=== PATIENT | male | born 1965 | race Caucasian/White ===

== ENCOUNTER 2016-11-15 19:07 | Emergency (ER) | payer BC ==
[~2016-11-15] VITALS: Ht 182.9 cm; Wt 77.1 kg
[2016-11-15 19:25] VITALS: BP 154/85
[2016-11-15 19:56] LABS: Basophils # (auto) 0 uL; Basophils % (auto) 0.1 % (0.0-2.0); CONDITION Y; Eosinophils # (auto) 0 uL; Hematocrit 46.1 % (41.0-53.0); Hemoglobin 15.6 g/dL (13.5-17.5); Lymphocytes # (auto) 0.9 uL; Mean Corpuscular Hemoglobin 31.3 pg (28.0-32.0); Mean Corpuscular Hgb Conc. 33.9 g/dL (32.0-36.0); Mean Corpuscular Volume 92.3 fL (80.0-100.0); Mean Platelet Volume 8.9 fL (7.4-10.4); Monocytes # (auto) 0.5 uL; Monocytes % (auto) 3.1 % (0.0-12.0); Neutrophils # (auto) 16.3 uL; Neutrophils % (auto) 91.8 % (37.0-80.0); Platelet Count (auto) 341 10^3/uL (140-450); Red Cell Distribution Width 13.3 % (11.6-16.0); White Blood Cell 17.8 10^3/uL (4.4-10.8)
[2016-11-15] MEDS ORDERED: SODIUM CHLORIDE 0.9% 1,000 ML IVB ONE (20:06)
[2016-11-15] MEDS ORDERED: ONDANSETRON HCL 4 MG/2 ML VIAL IV ONE (20:15)
[2016-11-15 20:17] LABS: Albumin 4.5 g/dL (3.4-5.0); Anion Gap 12 (5-15); Aspartate Aminotransferase 16 U/L (15-37); BUN/Creatinine Ratio 12.5; Blood Urea Nitrogen 13 mg/dL (7-18); Calcium 9.3 mg/dL (8.5-10.1); Carbon Dioxide 23 mmol/L (21-32); Chloride 105 mmol/L (98-107); GFR African American 97 mL/min; GFR Non-African American 80 mL/min; Glucose 127 mg/dL (74-106); Magnesium 2.1 mg/dL (1.6-2.6); Potassium 4.5 mmol/L (3.5-5.1); Sodium 140 mmol/L (136-145)
[2016-11-15 20:22] LABS: Alkaline Phosphatase 89 U/L (45-117); Bilirubin, Total 0.9 mg/dL (0.2-1.0); Total Protein 8.2 g/dL (6.4-8.2)
[2016-11-15] MEDS ORDERED: SODIUM CHLORIDE 0.9% 1,000 ML IV ONE ×2 (20:30→22:15)
[2016-11-15] MEDS ORDERED: TETANUS-DIPTH-ACEL PERTUSSIS 0.5ML SYRG IM ONE (20:30)
[2016-11-15] MEDS ORDERED: IOHEXOL 300 MG/ML 100ML BOTTLE IJ ONE (20:39)
[2016-11-15 21:07] LABS: Lactic Acid w/Reflex 2.5 mmol/L (0.4-2.0)
[2016-11-15 21:29] LABS: REFLEX LACTIC ACID YES OR NO YES
[2016-11-15] MEDS ORDERED: MILK OF MAGNESIA 30ML SUSP PO ONE (22:15)
[2016-11-15] MEDS ORDERED: POLYETHYLENE GLYCOL 17GM PWDR PO ONE (22:15)
[2016-11-15] MEDS ORDERED: METOCLOPRAMIDE HCL 5MG/ml INJ 2ml VIAL IV ONE (22:15)
[2016-11-15 22:53] LABS: Urine Bilirubin Negative (Negative); Urine Blood Negative /uL (Negative); Urine Color Yellow (Yellow); Urine Glucose Normal (Normal); Urine Mucus FEW (None Seen); Urine Nitrite Negative (Negative); Urine RBC 1 /hpf (0 - 3); Urine Squamous Epithelial Cell FEW /hpf (<5); Urine Urobilinogen Normal (Negative); Urine pH 6.5 (5.0-8.0)
[2016-11-15 23:14] LABS: Urine Ketone 2+ (Negative)
== END 2016-11-16 01:10 | disposition home or self-care (01) ==
LOC: ER 19:18
DX: K59.01 Slow transit constipation (principal); R56.9 Unspecified convulsions; F17.210 Nicotine dependence, cigarettes, uncomplicated; F12.10 Cannabis abuse, uncomplicated; R31.9 Hematuria, unspecified; Z90.49 Acquired absence of other specified parts of digestive tract; R11.2 Nausea with vomiting, unspecified
CPT/HCPCS: 36415; 70450; 71010; 74177; 80053; 80307; 80320; 81001; 82962; 83605; 83690; 83735; 84484; 85025; 87040; 90471; 90715; 96361; 96374; 99285; J2765; J7030; Q9967

== ENCOUNTER 2019-11-01 18:21 | Inpatient (IN) | payer BC, OTHER ==
[~2019-11-01] VITALS: Ht 172.7 cm; Wt 79.7 kg
[2019-11-01] VITALS (8 sets, daily range): BP systolic 114–132; BP diastolic 87–103
[2019-11-01] MEDS ORDERED: HEPARIN SODIUM (PORCINE) 5000 UNITS/ML 1ML VIAL IV ONE (18:30)
[2019-11-01] MEDS ORDERED: LIDOCAINE HCL 100 MG/5ML (2%) SYRG INJ IV ONE (18:30)
[2019-11-01] MEDS ORDERED: MIDAZOLAM HCL 1MG/1ML-2 ML VIAL ONE ×2 (18:39→18:56)
[2019-11-01] MEDS ORDERED: SUCCINYLCHOLINE CHLORIDE 20 MG/ML 10ML VIAL IV ONE ×2 (18:43→19:00)
[2019-11-01] MEDS ORDERED: MIDAZOLAM DRIP 50 mg/50mL 50 ML IV ONE (18:43)
[2019-11-01] MEDS ORDERED: ETOMIDATE (2MG/ML) 20ML VIAL IV ONE ×2 (18:43→19:00)
[2019-11-01] MEDS ORDERED: MIDAZOLAM DRIP 100 mg/100mL NS 100 ML IV ONE (18:45)
[2019-11-01] MEDS ORDERED: ANGIOMAX 250 MG VIAL IV ONE (18:55)
[2019-11-01] MEDS ORDERED: HEPARIN SODIUM (PORCINE) 5000 UNITS/ML 1ML VIAL ONE (18:56)
[2019-11-01] MEDS ORDERED: fentaNYL CITRATE 100 MCG/2 ML VL ONE (18:56)
[2019-11-01] MEDS ORDERED: SODIUM CHL 0.9% 50 ML ONE (18:56)
[2019-11-01] MEDS ORDERED: IOHEXOL 350 MG/ML 100ML IJ ONE (18:57)
[2019-11-01] MEDS ORDERED: VERAPAMIL 2.5MG/ML INJ 2ML VIAL IV ONE (18:57)
[2019-11-01] MEDS ORDERED: IODIXANOL 320MG/ML 100ML BTL IV ONE ×2 (18:58→20:01)
[2019-11-01] MEDS ORDERED: SODIUM CHLORIDE 0.9% 1,000 ML IV ONE (19:00)
[2019-11-01] MEDS ORDERED: AMIODARONE HCL 300 MG in D5W 5% 100 ML IV ONE (19:00)
--- NOTE | 2019-11-01 19:05 | NUR ---
PT WAS INTUBATED IN ER. PT CODE STEMI BROUGHT OVER FROM ER AT THIS TIME AND PLACED ON ALLERGIST VENT V 22 SETTINGS AC 16 VT 500 +5 100. PT HAS ETT 8.0 SECURED WITH SIRIA AT 24CM. PT IS TOLERATING WELL AT THIS TIME. PT IS ON VERSED AND DIPRIVAN FOR SEDATION. WILL REMAIN WITH PT FOR PROCEDURE.
[2019-11-01 19:32] LABS: Basophils # (auto) 0.1 10 ^3/uL (0-0.2); Basophils % (auto) 0.4 % (0.0-2.0); Eosinophils # (auto) 0 10 ^3/uL (0-0.8); Hematocrit 49.3 % (41.0-53.0); Hemoglobin 16.1 g/dL (13.5-17.5); Lymphocytes # (auto) 1.6 10 ^3/uL (0.4-5.4); Lymphocytes % (auto) 7.6 % (10.0-50.0); Mean Corpuscular Hemoglobin 31.3 pg (28.0-32.0); Mean Corpuscular Hgb Conc. 32.7 g/dL (32.0-36.0); Mean Corpuscular Volume 95.9 fL (80.0-100.0); Monocytes # (auto) 0.9 10 ^3/uL (0-1.3); Monocytes % (auto) 4.5 % (0.0-12.0); Neutrophils # (auto) 18.4 10 ^3/uL (1.6-8.6); Neutrophils % (auto) 87.5 % (37.0-80.0); Platelet Count (auto) 305 10^3/uL (140-450); Red Blood Cells 5.14 10^6/uL (4.5-5.90); Red Cell Distribution Width 13.9 % (11.8-14.3)
[2019-11-01] MEDS ORDERED: PROPOFOL 100 ML IV ONE (19:38)
[2019-11-01] MEDS ORDERED: EPTIFIBATIDE INJ (2MG/ML) 10ML VIAL IV ONE (19:51)
[2019-11-01] MEDS ORDERED: TICAGRELOR 90 MG TAB ONE (20:09)
[2019-11-01] MEDS ORDERED: EPTIFIBATIDE DRIP(0.75MG/ML) 100 ML IV ONE (20:10)
[2019-11-01] MEDS ORDERED: FUROSEMIDE 40 MG/4 ML VIAL IV ONE (20:30)
[2019-11-01] MEDS ORDERED: EPTIFIBATIDE DRIP(0.75MG/ML) 100 ML IV SCH (20:30)
[2019-11-01] MEDS ORDERED: OPTISON 3ml Vial for INJ IV ONE (20:46)
--- NOTE | 2019-11-01 21:00 | NUR ---
ETT ADVANCED TO 26CM PER XRAY FINDINGS OF 5.5 CM ABOVE SEVERO, AND SECURED WITH SIRIA.
--- NOTE | 2019-11-01 21:15 | NUR ---
MD MARQUES ON UNIT. GAVE THIS RN UPDATE ON PT CONDITION AND TOLD TO TURN OFF INTEGRILIN GTT IF PT IS EXPERIENCING S/S OF BLEEDING BUT PREFERS TO KEEP GTT RUNNING UNTIL 0300 ON 11/01.
--- NOTE | 2019-11-01 21:30 | NUR ---
RECEIVED PT FROM RETINAL ANGIOGRAPHER. APPLIED PT TO ICU MONITOR. VITAL SIGNS FOLLOWS: 97.4 TEMP/ HR 100/ RESP 22/ SP02 100%/ BP 114/87 LEFT UPPER EXTREMITY/WEIGHT 70.7 KG. PT IS MECHANICALLY VENTILATED WITH MODE OF AC, RATE 16, TV 500, PEEP OF 5. VITAL SIGNS STABLE. EKG IS SINUS TACH WITH ST ELEVATION POST CATH. LUNGS ARE CLEAR TO AUSCULTATION. OG TUBE IN PLACE VIA POSITIVE AUSCULTATION AT 55 CM AT THE LIP. RESIDUAL BLOOD COMING FROM NOSE AND MOUTH. WHEN SUCTIONED VIA ETT THERE IS MINIMAL MIKAL BLOOD NOTED. GTTS RUNNING ARE DIPRVAN 15, VERSED 15, AND INTEGRILLIN 2MCG, NS TKO. RIGHT GROIN CATH SITE IS ASYMPTOMATIC WITH NO S/S OF BLEEDING OR HEMATOMA. SENT MRSA SWAB. WILL CONTINUE TO MONITOR AND ASSESS PT.
--- NOTE | 2019-11-01 21:30 | NUR ---
DONOR RELATIONS COORDINATOR; Patient taken to ICU room 110, placed on monitoring engineer, right groin soft, no hematoma or bleeding noted, Safeguard in place, care endorsed to Sheila AUXILIARY EQUIPMENT TENDER.
--- NOTE | 2019-11-01 22:15 | NUR ---
MD Dillon ROBLERO AT BEDSIDE. SAW PT, NO NEW ORDERS RECEIVED. UPDATED MD ON PT CONDITION, HISTORY, AND MEDICATIONS GIVEN. SAYS WILL BE THE PTS PRIMARY CARE HERE IN THE HOSPITAL AND WILL SEE PT IN AM.
--- NOTE | 2019-11-01 22:36 | NUR ---
PTS SIGNIFICANT OTHER AT BEDSIDE. UPDATED HER ON PT CONDITION AND PLAN OF CARE. VERIFIED PT PCP- DR. LOWE, PT HISTORY, HOME MEDICATIONS, VACCINATIONS WITH HER. ALL QUESTIONS AND CONCERNS ADDRESSED AT THIS TIME.
--- NOTE | 2019-11-01 22:50 | NUR ---
MD MATHIAS CALL NEPHROLOGY WAS CONSULTED FOR THIS PT. MD MATHIAS CALLED UNIT TO GET AN UPDATE ON PT. UPDATED MD ON PT CONDITION AND CURRENT PLAN OF CARE. LABS HAVE NOT RESULTED YET. SAYS TO CALL LAB AND GET VALUES THEN CALL HIM BACK. WILL EXECUTE.
--- NOTE | 2019-11-01 22:53 | NUR ---
CALLED LAB TO VERIFY STATUS OF PTS LABS. LAB STATES SAMPLE WAS HEMOLYZED. THIS RN WILL RESEND CMP.
--- NOTE | 2019-11-01 23:03 | NUR ---
STAT CMP WALKED TO LAB BY ELENA MARRUFO. AWAITING RESULTS
[2019-11-01] MEDS: PROPOFOL 100 ML IV SCH (23:45)
[2019-11-01 23:51] LABS: Calcium 8.6 mg/dL (8.5-10.1); Potassium 5.3 mmol/L (3.5-5.1)
[2019-11-01 23:53] LABS: BUN/Creatinine Ratio 17.1
[2019-11-02] VITALS (103 sets, daily range): BP systolic 89–120; BP diastolic 56–91
--- NOTE | 2019-11-02 00:01 | NUR ---
JOSE MATHIAS WITH PTS LAB RESULTS. MADE HIM AWARE OF PTS 5.3 POTASSIUM LEVEL AND ELEVATED LIVER ENZYMES. NEW ORDERS RECEIVED FOR 2MG BUMEX IV PUSH X1.
[2019-11-02 00:02] LABS: Bilirubin, Total 0.8 mg/dL (0.2-1.0)
[2019-11-02] MEDS ORDERED: BUMETANIDE 2.5mg/10ml (0.25 mg/ml) INJ IV ONE ×2 (00:15→15:30)
[2019-11-02 00:47] LABS: Partial Thromboplastin Time 30.2 sec (23.64-32.05)
[2019-11-02] MEDS ORDERED: PROPOFOL 100 ML IV ONE (00:48)
[2019-11-02] MEDS ORDERED: MIDAZOLAM DRIP 50 mg/50mL 50 ML IV ONE (00:48)
[2019-11-02] MEDS: ATORVASTATIN 20 MG TAB PO SCH ×2 (00:56→21:54)
[2019-11-02] MEDS: PANTOPRAZOLE 40 MG/10 ML VIAL INJ IV SCH ×3 (00:56→21:54)
--- NOTE | 2019-11-02 02:56 | NUR ---
INTEGRILIN GTT TURNED OFF PER MD MARQUES ORDER. PT HAS NO S/S OF BLEEDING AT THIS TIME. WILL CONTINUE TO MONITOR AND ASSESS.
--- NOTE | 2019-11-02 04:30 | NUR ---
PT CARE GAVE PT BED BATH. SKIN ASSESSED WITH NO NEW CHANGES. GOWN CHANGE AND PARTIAL STEPHENIE CHANGE DONE. ORAL CARE DONE AND PT TURNED.
--- NOTE | 2019-11-02 04:43 | NUR ---
FAMILY CALL SPOKE WITH PTS SIGNIFICANT OTHER AND GAVE UPDATE ON PT CONDITION. PASSWORD VERIFIED. ALL QUESTIONS AND CONCERNS ADDRESSED AT THIS TIME.
[2019-11-02] MEDS: PROPOFOL 100 ML IV SCH ×4 (06:01→22:01)
[2019-11-02] MEDS: TICAGRELOR 90 MG TAB GT SCH ×3 (07:31→21:54)
--- NOTE | 2019-11-02 07:37 | NUR ---
REPORT GIVEN TO LES PARKER.
--- NOTE | 2019-11-02 08:14 | NUR ---
Resumed care at 0720, orders reviewed and ongoing assessments being done. S/P CPR and S/P LHC with PTCA. Remains intubated and sedated. Upon tactile stimulation does withdraw to touch. Remains on sedation and not able to open eyes at this time. Will initiate sedation vacation. LHC puncture site to right groin, dressing dry and intact and no hematoma noted. Good palpable pulses to both lower extremities. Noted some blood tinged oral secretion but no other bleeding noted.
[2019-11-02 09:01] LABS: Basophils # (auto) 0.1 10 ^3/uL (0-0.2); Basophils % (auto) 0.3 % (0.0-2.0); Eosinophils # (auto) 0 10 ^3/uL (0-0.8); Hematocrit 50.9 % (41.0-53.0); Hemoglobin 16.8 g/dL (13.5-17.5); Lymphocytes # (auto) 1.7 10 ^3/uL (0.4-5.4); Lymphocytes % (auto) 7.5 % (10.0-50.0); Mean Corpuscular Hemoglobin 31.1 pg (28.0-32.0); Monocytes # (auto) 2.3 10 ^3/uL (0-1.3); Monocytes % (auto) 10.5 % (0.0-12.0); Neutrophils # (auto) 18.2 10 ^3/uL (1.6-8.6); Neutrophils % (auto) 81.7 % (37.0-80.0); Platelet Count (auto) 273 10^3/uL (140-450); Red Blood Cells 5.41 10^6/uL (4.5-5.90); White Blood Cell 22.3 10^3/uL (4.4-10.8)
[2019-11-02 09:29] LABS: Albumin 3.9 g/dL (3.4-5.0); Potassium 3.7 mmol/L (3.5-5.1)
[2019-11-02 09:38] LABS: BUN/Creatinine Ratio 22.3; Bilirubin, Total 0.6 mg/dL (0.2-1.0); Total Protein 7.5 g/dL (6.4-8.2)
[2019-11-02] MEDS: ASPirin 81 mg TAB PO SCH (09:45)
[2019-11-02] MEDS: MIDAZOLAM DRIP 50 mg/50mL 50 ML IV SCH ×2 (09:46→18:50)
--- NOTE | 2019-11-02 10:26 | NUR ---
Spoke to girlfriend Margi over the phone. Updated her on condition and plan of care. Dr. Alcantara in unit and rounded. Discussed condition and reviewed medications. Dr. Alcantara also spoke with girlfriend Margi over the phone and discussed plan of care.
--- NOTE | 2019-11-02 10:34 | NUR ---
WOUND CARE NOTE: Added patient to wound care monitoring list due to Low Abbe score of 12 and intubation status, putting patient to high risk for skin breakdown. Patient is 53 years old male with admitting diagnosis of Chest Pain. Patient is resting in ICU bed in Rm. 110. Patient is intubated, sedated and mechanically ventilated. Patient appears to be in no pain using Larios Claudio Faces Pain Scale. No open wound noted other than puncture/incision to R groin with C/D/I dressing s/p angio. He's receiving BID/PRN cleaning and application of Barrier cream to sacrum as preventative. RECOMMENDATION: Nursing to continue with BID/PRN cleaning and application of Barrier cream to sacral, buttocks as preventative, frequent turning and repositioning schedule as condition permits, redistribute pressure points with pillows, elevate heels on pillows, continue monitoring by wound care while patient is intubated. Addendum: 11/02/19 at 1207 by Anika Landaverde RN Amended: Links added.
--- NOTE | 2019-11-02 11:59 | NUR ---
Dr. Aldrich was in at 1119 am to consult for possible GIB. Dr. Alcantara in unit and discussed the case. Abdominal US ordered. No meliton bleeding noted since arrival of shift.
--- NOTE | 2019-11-02 12:50 | NUR ---
Ultrasound of abdomen completed at bedside.
[2019-11-02] MEDS: fentaNYL Drip 2500mCg/250mlNS 250 ML IV SCH (14:27)
[2019-11-02] MEDS: SODIUM CHLORIDE 0.9% 1,000 ML IV SCH (15:54)
[2019-11-02] MEDS ORDERED: DIGOXIN (250MCG/ML) 2 ML AMPULE IV ONE (16:45)
[2019-11-02 17:05] LABS: Sodium Urine 9 mmol/L (40-220)
[2019-11-02 17:14] LABS: Creatinine, Urine 318 mg/dL (30.0-125.0)
[2019-11-02] MEDS ORDERED: AMIODARONE HCL (50 MG/ ML) 3 ML VIAL IV ONE (17:51)
[2019-11-02] MEDS ORDERED: MAGNESIUM SULF 50% 40 MEQ/10 ML VL IV ONE (17:51)
[2019-11-02] MEDS ORDERED: LIDOCAINE HCL 100 MG/5ML (2%) SYRG INJ IV ONE (17:51)
[2019-11-02] MEDS ORDERED: SODIUM BICARBONATE 8.4% INJ 50ML SYRINGE IV ONE (17:51)
[2019-11-02] MEDS ORDERED: D5W 5% 100 ML BAG IV ONE (17:51)
[2019-11-02] MEDS ORDERED: VANCOMYCIN PER PHARMACY 0 MG IV SCH (18:15)
[2019-11-02] MEDS: levoFLOXacin 500MG 100 ML IV SCH (18:23)
--- NOTE | 2019-11-02 18:30 | NUR ---
Dr. Price, toddler guide rounded at 1415. Discussed condition and data reviewed. Increase in HR 124-127 with low urine output. Per Dr. Price normal saline bolus of 250 ml given and one dose of Bumex 1 mg given IVP. Initiated maintenance IVF of NS to run at 60ml/hr. Dr. Dash rounded earlier today. Contacted Dr. Patten at 1633. Made him aware of increase HR 129-130. Made him aware of Dr. Price's interventions. Per Dr. Patten, ordered one dose of Digoxin 0.5mg IVP and given at 1646. HR remains at 128-130. Contacted Dr. Dash and made him aware of low grade fever 99.1. No antibiotics ordered and WBC count elevated. Dr. Dash ordered Levaquin and Vancomycin.
[2019-11-02] MEDS ORDERED: DOBUTamine 1000MCG/ML 250 ML IV SCH (19:30)
[2019-11-02] MEDS: DOBUTamine 1000MCG/ML 250 ML IV SCH (19:47)
--- NOTE | 2019-11-02 20:06 | NUR ---
DR MARQUES AWARE OF PT CONDITION- TACHYCARDIC IN 130'S-140'S WITH CONTINUED ST ELEVATION POST CATH. MD GAVE ORDERS TO START DOBUTAMINE AT SET RATE OF 2.5 MCG/KG/MIN TO DAYSHIFT RN. THIS RN BEGAN DOBUTAMINE GTT. WILL MAKE MD AWARE OF ANY CHANGES IN PT CONDITION.
[2019-11-02] MEDS: VANCOMYCIN 1GM/250ML 250 ML IV SCH (21:54)
[2019-11-03] VITALS (106 sets, daily range): BP systolic 85–106; BP diastolic 55–76
--- NOTE | 2019-11-03 00:03 | NUR ---
PT REMAINS TACHYCARDIC AT 133 BEATS/MIN ON DOBUTAMINE GTT. BP STABLE. EKG RHYTHM HAS NOT CHANGED FROM SINUS TACHYCARDIA WITH ST ELEVATION.
--- NOTE | 2019-11-03 01:34 | NUR ---
PT CARE GAVE PT CHG BATH AND APPLIED MOISTURE BARRIER CREAM TO ALL EXTREMITIES. ORAL CARE DONE AND PT TURNED. WHEN PT WAS TURNED SMALL AMOUNT OF BRIGHT RED BLOOD CAME FROM NOSE. NO OTHER S/S OF BLEEDING NOTED. FULL STEPHENIE AND GOWN CHANGE DONE.
[2019-11-03 04:21] LABS: Basophils # (auto) 0 10 ^3/uL (0-0.2); Basophils % (auto) 0.1 % (0.0-2.0); Eosinophils # (auto) 0 10 ^3/uL (0-0.8); Hematocrit 47.1 % (41.0-53.0); Hemoglobin 15.7 g/dL (13.5-17.5); Lymphocytes # (auto) 1.1 10 ^3/uL (0.4-5.4); Lymphocytes % (auto) 4.5 % (10.0-50.0); Mean Corpuscular Hemoglobin 31.5 pg (28.0-32.0); Mean Corpuscular Hgb Conc. 33.4 g/dL (32.0-36.0); Mean Corpuscular Volume 94.5 fL (80.0-100.0); Monocytes # (auto) 3.2 10 ^3/uL (0-1.3); Monocytes % (auto) 13.5 % (0.0-12.0); Neutrophils # (auto) 19.2 10 ^3/uL (1.6-8.6); Neutrophils % (auto) 81.9 % (37.0-80.0); Platelet Count (auto) 199 10^3/uL (140-450); Red Blood Cells 4.99 10^6/uL (4.5-5.90); Red Cell Distribution Width 13.5 % (11.8-14.3); White Blood Cell 23.5 10^3/uL (4.4-10.8)
[2019-11-03 04:26] LABS: INR 1.04 (0.9-1.15)
[2019-11-03 04:34] LABS: Potassium 4.3 mmol/L (3.5-5.1)
[2019-11-03 04:51] LABS: Albumin 3.3 g/dL (3.4-5.0); BUN/Creatinine Ratio 21.4; Calcium 8.8 mg/dL (8.5-10.1)
--- NOTE | 2019-11-03 06:25 | NUR ---
ETT 8.0 @ 26CM REVIEWED CXR, ETT 5CM ABOVE SEVERO, ADVANCED TUBE 2CM WITHOUT INCIDENT. ETT NOW AT 26CM LIP, SECURED WITH HOLISTER.
[2019-11-03] MEDS: SODIUM CHLORIDE 0.9% 1,000 ML IV SCH (07:10)
--- NOTE | 2019-11-03 07:15 | NUR ---
MD MARQUES AT BEDSIDE TO ASSESS PT AND UPDATE PLAN OF CARE. SAYS MAY PUT NIRMAL PARKS IN PT TODAY.
[2019-11-03] MEDS: PROPOFOL 100 ML IV SCH ×3 (08:33→18:44)
--- NOTE | 2019-11-03 09:00 | NUR ---
PATIENT HAS POSITIVE COUGH/GAG - NO PLANS TO WEAN FROM VENTILATOR - SEDATION VACATION HELD Addendum: 11/03/19 at 1102 by Jodee Abdul RN Amended: Links added.
[2019-11-03] MEDS: VANCOMYCIN 1GM/250ML 250 ML IV SCH ×2 (09:17→20:58)
[2019-11-03] MEDS: levoFLOXacin 500MG 100 ML IV SCH (10:04)
[2019-11-03] MEDS: PANTOPRAZOLE 40 MG/10 ML VIAL INJ IV SCH ×2 (10:04→22:14)
[2019-11-03] MEDS: ASPirin 81 mg TAB PO SCH (10:05)
--- NOTE | 2019-11-03 11:15 | NUR ---
DR CHIN VISITS AND EXAMINES PATIENT-NO NEW ORDERS RECEIVED.
--- NOTE | 2019-11-03 13:28 | NUR ---
PLACED CALL TO PATIENT'S SISTER RE:CONSENT FOR CENTRAL LINE PLACEMENT - BOTH SISTERS WANTED TO DISCUSS PROCEDURE WITH PATIENT'S GIRLFRIEND WHO IS A NURSE. BOTH SISTERS RETURNED CALL TO BLAST FURNACE HELPER AND GAVE CONSENT FOR CENTRAL LINE PLACEMENT. Addendum: 11/03/19 at 1951 by Jodee Abdul RN PATIENT'S SISTERS ARE AIDAN AND OLEG. NEXT OF KIN INFO UPDATED IN INTERVENTIONS.
[2019-11-03] MEDS ORDERED: MAGNESIUM SULF 50% 40 MEQ/10 ML VL IV ONE (13:59)
[2019-11-03] MEDS ORDERED: AMIODARONE HCL (50 MG/ ML) 3 ML VIAL IV ONE (13:59)
[2019-11-03] MEDS ORDERED: D5W 5% 100 ML BAG IV ONE (13:59)
[2019-11-03] MEDS ORDERED: EPINEPHrine HCL 1 MG/10 ML SYRG IV ONE (13:59)
[2019-11-03] MEDS ORDERED: SODIUM BICARBONATE 8.4% INJ 50ML SYRINGE IV ONE (13:59)
[2019-11-03] MEDS ORDERED: LIDOCAINE HCL 100 MG/5ML (2%) SYRG INJ IV ONE (13:59)
--- NOTE | 2019-11-03 14:15 | NUR ---
DR BRANDON VISITS AND EXAMINES PATIENT - NO NEW ORDERS RECEIVED.
--- NOTE | 2019-11-03 15:45 | NUR ---
RIGHT IJ TLC PLACED AT BEDSIDE PER DR TREJO - PATIENT AWAKENED AND BECAME VERY AGITATED ATTEMPTING TO SIT UP AND PULL OUT ETT AND RESIST CENTRAL LINE INSERTION - VERSED GTT STARTED AND DIPRIVAN AND FENTANYL INCREASED PER DR TREJO'S ORDERS Addendum: 11/03/19 at 2018 by Jodee Abdul RN RECEIVED ORDERS FOR TITRATION OUTSIDE OF STANDARD PROTOCOL DUE TO PATIENT'S EXTREME AGITATION
[2019-11-03] MEDS: MIDAZOLAM DRIP 50 mg/50mL 50 ML IV SCH (16:05)
[2019-11-03] MEDS: fentaNYL Drip 2500mCg/250mlNS 250 ML IV SCH (16:11)
[2019-11-03] MEDS: DOBUTamine 1000MCG/ML 250 ML IV SCH (16:12)
--- NOTE | 2019-11-03 16:45 | NUR ---
CVP ZEROED AND CONTINUOUS READINGS STARTED - INITIAL VALUE OF 2 NOTED.
--- NOTE | 2019-11-03 17:00 | NUR ---
SEDATION DECREASED PATIENT TOLERATES PATIENT MODERATELY SEDATED.
--- NOTE | 2019-11-03 17:20 | NUR ---
PATIENT'S GIRLFRIEND JUNG PHONED WITH PASSWORD - GIVEN UPDATE - VERBALIZED UNDERSTANDING.
--- NOTE | 2019-11-03 18:10 | NUR ---
MCWILLIAMS PHONES - UPDATED ON PATIENT'S CVP READING OF 2 - ORDERS RECEIVED.
[2019-11-03] MEDS ORDERED: SODIUM CHLORIDE 0.9% 1,000 ML IV ONE (18:15)
--- NOTE | 2019-11-03 18:45 | NUR ---
VENOUS GASES CALLED TO DR MARQUES - NO NEW ORDERS RECEIVED, INFORMED OF CVP 5-6 WITH BOLUS INFUSING @500ML/HR - NO CHANGES PER MD.
[2019-11-03] MEDS ORDERED: SODIUM CHLORIDE 0.9% 1,000 ML IV SCH (19:15)
--- NOTE | 2019-11-03 19:15 | NUR ---
SIGNAL MANAGER PHONED PATIENT'S SISTER AIDAN - INFORMED HER THAT CENTRAL LINE INSERTION PROCEDURE WAS COMPLETED SUCCESSFULLY - ALSO UPDATED HER ON PATIENT CONDITION - VERBALIZED UNDERSTANDING.
--- NOTE | 2019-11-03 19:22 | NUR ---
OPEN RECEIVED REPORT FROM LES PARKRE AND ROOM CHECK DONE. PT IS CURRENTLY INTUBATED AND SEDATED (SEE IV SPREADSHEET). NO S/S OF DISTRESS NOTED AT THIS TIME WITH STABLE VITAL SIGNS. ET IS 8/ AT THE LIP, VENT SETTINGS NOTED IN CHART. LUNGS ARE CLEAR. IV FLUID BOLUS GOING PER MD MARQUES ORDER. DOBUTAMINE RUNNING AT SET RATE OF 2.5. NO EDEMA, POSITIVE PULSES IN ALL FOUR EXTREMITIES. PT HAS BEEN RUNNING ST WITH ST ELEVATION WITH A RATE IN 120'S. MD IS AWARE OF PT CONDITION. CVP MONITORING ONGOING TO BROWN PORT ON RIGHT IJ TLC. OG TUBE IS CLAMPED AT THIS TIME. BOWEL SOUNDS HYPOACTIVE AND FLATUS PRESENT. UNKNOWN LAST BM. SKIN IS INTACT WITH PREVENTATIVE OPTIFOAM TO SACRAL AREA. WILL CONTINUE TO MONITOR AND ASSESS PT.
--- NOTE | 2019-11-03 20:05 | NUR ---
NS FLUID BOLUS OF 1L COMPLETED. IV FLUIDS RUNNING AT 150 ML/HR PER DR. MARQUES. CVP ZEROED AND WAVEFORM APPROPRIATE. READINGS ARE VARIABLE, BUT BETWEEN 9-11.
[2019-11-03 20:10] LABS: Urine Bacteria NONE SEEN /hpf (None Seen); Urine Blood 3+ /uL (Negative); Urine Hyaline Cast FEW /lpf (0 - 2); Urine Mucus FEW (None Seen); Urine Specific Gravity 1.031 (1.001-1.035); Urine WBC 4 /hpf (0 - 3)
--- NOTE | 2019-11-03 21:35 | NUR ---
SEDATION VACATION NOT APPROPRIATE AT THIS TIME. Addendum: 11/03/19 at 2136 by PATTIE CAMPUZANO RN RN Amended: Links added.
[2019-11-03] MEDS: ENOXAPARIN SOD 80 MG/0.8ML SYRINGE SC SCH (22:13)
[2019-11-03] MEDS: ATORVASTATIN 20 MG TAB PO SCH (22:13)
[2019-11-04] VITALS (107 sets, daily range): BP systolic 80–103; BP diastolic 54–77
[2019-11-04] MEDS: PROPOFOL 100 ML IV SCH ×2 (00:45→07:48)
--- NOTE | 2019-11-04 04:05 | NUR ---
CENTRAL LINE DRESSING CHANGE DONE OLD DRESSING WAS SOILED WITH BLOOD. NEW DRESSING APPLIED USING STERILE TECHNIQUE. NO S/S OF INFECTION NOTED. NEW DRESSING IS TIMED, DATED, AND INITIALED.
--- NOTE | 2019-11-04 04:06 | NUR ---
PT CARE GAVE PT CHG BATH AND APPLIED MOISTURE BARRIER CREAM TO ALL EXTREMITIES. ORAL CARE DONE AND PT TURNED. WHEN PT WAS TURNED MODERATE AMOUNT OF BRIGHT RED BLOOD CAME FROM NOSE. NO OTHER S/S OF BLEEDING NOTED. FULL STEPHENIE AND GOWN CHANGE DONE.
[2019-11-04 04:48] LABS: Basophils # (auto) 0 10 ^3/uL (0-0.2); Basophils % (auto) 0.2 % (0.0-2.0); Eosinophils # (auto) 0 10 ^3/uL (0-0.8); Hematocrit 39.4 % (41.0-53.0); Hemoglobin 13.1 g/dL (13.5-17.5); Mean Corpuscular Hemoglobin 31.5 pg (28.0-32.0); Mean Corpuscular Hgb Conc. 33.3 g/dL (32.0-36.0); Mean Corpuscular Volume 94.4 fL (80.0-100.0); Monocytes # (auto) 2.3 10 ^3/uL (0-1.3); Monocytes % (auto) 11.8 % (0.0-12.0); Neutrophils # (auto) 16.4 10 ^3/uL (1.6-8.6); Platelet Count (auto) 171 10^3/uL (140-450); Red Blood Cells 4.17 10^6/uL (4.5-5.90); Red Cell Distribution Width 13.6 % (11.8-14.3); White Blood Cell 19.8 10^3/uL (4.4-10.8)
[2019-11-04 05:10] LABS: Potassium 4.5 mmol/L (3.5-5.1)
[2019-11-04 05:17] LABS: Albumin 2.6 g/dL (3.4-5.0); BUN/Creatinine Ratio 25.5; Phosphorus 2.6 mg/dL (2.5-4.90); Total Protein 6.1 g/dL (6.4-8.2)
--- NOTE | 2019-11-04 07:27 | NUR ---
REPORT GIVEN AND CARE ENDORSED TO LES RAMIREZ
[2019-11-04] MEDS: SODIUM CHLORIDE 0.9% 1,000 ML IV SCH ×3 (07:47→17:35)
[2019-11-04] MEDS ORDERED: SODIUM CHLORIDE 0.9% 500 ML IV ONE (08:30)
--- NOTE | 2019-11-04 08:31 | NUR ---
DR. MARQUES AT BEDSIDE
[2019-11-04] MEDS: VANCOMYCIN 1GM/250ML 250 ML IV SCH ×2 (08:58→16:36)
--- NOTE | 2019-11-04 09:08 | NUR ---
SEDATION VACATION HELD AT THIS TIME Addendum: 11/04/19 at 0908 by Vinay Martin RN Amended: Links added.
[2019-11-04] MEDS: PANTOPRAZOLE 40 MG/10 ML VIAL INJ IV SCH ×2 (09:39→21:39)
[2019-11-04] MEDS: levoFLOXacin 750MG 150 ML IV SCH (09:43)
[2019-11-04] MEDS: ENOXAPARIN SOD 80 MG/0.8ML SYRINGE SC SCH ×2 (09:44→21:39)
[2019-11-04] MEDS: ASPirin 81 mg TAB PO SCH (09:44)
[2019-11-04] MEDS: MIDAZOLAM DRIP 50 mg/50mL 50 ML IV SCH ×2 (09:44→17:48)
--- NOTE | 2019-11-04 10:45 | NUR ---
GIRLFRIENPapito FENG UPDATED ON PATIENT STATUS ALL QUESTIONS AND CONCERNS ADDRESSED AT THIS TIME
--- NOTE | 2019-11-04 11:54 | NUR ---
TEMP 100.2 AXILLARY COOLING MEASURES APPLIED Addendum: 11/04/19 at 1419 by Vinay Martin RN WRONG PATIENT
[2019-11-04] MEDS: DexMEDEtomidine 400 MCG in D5W 5% 96 ML IV SCH (11:56)
--- NOTE | 2019-11-04 12:42 | NUR ---
SEVERE AGITATION PATIENT ON PRECEDEX AND FENTANYL BEING TITRATED DOWNWARD FOR CPAP TRIAL. PATIENT SEVERELY AGITATED NO FOLLOWING COMMANDS, SWINGING LEGS, THROWING UPPER TORSO TOWARDS SIDE OF BED. PATIENT AT RISK FOR PULLING OUT ET TUBE AND IV LINES. UNABLE TO CPAP PATIENT AT THIS TIME
[2019-11-04] MEDS: fentaNYL Drip 2500mCg/250mlNS 250 ML IV SCH (13:57)
--- NOTE | 2019-11-04 14:08 | NUR ---
PARTIAL LINEN AND GOWN CHANGE PERFORMED AT THIS TIME
[2019-11-04] MEDS: DOBUTamine 1000MCG/ML 250 ML IV SCH (15:02)
[2019-11-04] MEDS ORDERED: FUROSEMIDE 20 MG/2 ML VIAL IV ONE (16:00)
--- NOTE | 2019-11-04 16:25 | NUR ---
Nutrition Assessment Notes Please refer to link for full assessment notes. Est Energy needs: 6668-0959 kcals (25-30 kcal/kgBW) Est Protein needs: 60-75 gms/day (0.8-1.0 gm/kgBW) Will continue to monitor and reassess prn. Addendum: 11/04/19 at [address] Amended: Links added.
--- NOTE | 2019-11-04 16:49 | NUR ---
FAMILY UPDATED ON PATIENT STATUS. ALL QUESTIONS AND CONCERNS ADDRESSED AT THIS TIME
--- NOTE | 2019-11-04 19:30 | NUR ---
PM ASSESSMENT PT ON ETT TO VENT, SETTINGS AC12/TV500/FIO2 30%/PEEP5+, O2SAT 95%. ETT8.0/28@LL. ST W/ST ELEVATION ON THE MONITOR. OGT CLAMPED, PLACEMENT CHECKED. FERNÁNDEZ CATHETER DRAINING LIGHT ANAID URINE VIA GRAVITY. SAFETY PRECAUTIONS IN PLACE. WILL CONTINUE TO MONITOR.
--- NOTE | 2019-11-04 21:00 | NUR ---
PT GIRLFRIEND JUNG UPDATED, ALL QUESTIONS ANSWERED.
[2019-11-04] MEDS: ATORVASTATIN 20 MG TAB PO SCH (21:39)
[2019-11-05] VITALS (105 sets, daily range): BP systolic 80–125; BP diastolic 48–88
[2019-11-05] MEDS: MIDAZOLAM DRIP 50 mg/50mL 50 ML IV SCH ×2 (00:10→22:00)
[2019-11-05] MEDS: SODIUM CHLORIDE 0.9% 1,000 ML IV SCH ×2 (01:16→06:00)
[2019-11-05] MEDS: VANCOMYCIN 1GM/250ML 250 ML IV SCH ×3 (01:56→17:04)
--- NOTE | 2019-11-05 02:30 | NUR ---
BED BATH GIVEN AND LINENS CHANGED, PT TOLERATED WELL. SAFETY PRECAUTIONS IN PLACE. WILL CONTINUE TO MONITOR.
--- NOTE | 2019-11-05 05:00 | NUR ---
PT NOT TOLERATING ADMIN OF LOWER SEDATION, PT COUGHING AND MOVING EXTREMITIES. SUCTIONING REQUIRED, LARGE AMOUNT OF THICK SECRETIONS JENKINS MILKY SUCTIONED. SEDATION INCREASED, FIO2 INCREASED TO 50%, PT TOLERATING WELL. SAFETY PRECAUTIONS IN PLACE. WILL CONTINUE TO MONITOR.
[2019-11-05 05:02] LABS: Calcium 7.6 mg/dL (8.5-10.1); Potassium 3.6 mmol/L (3.5-5.1)
[2019-11-05 05:08] LABS: BUN/Creatinine Ratio 23.9; Bilirubin, Total 1.3 mg/dL (0.2-1.0); Total Protein 5.2 g/dL (6.4-8.2)
--- NOTE | 2019-11-05 06:00 | NUR ---
PT TOLERATING THE INCREASE IN SEDATION MEDS. O2SAT 92%, NO CURRENT MOVING OF EXTREMITIES. SAFETY PRECAUTIONS IN PLACE. WILL CONTINUE TO MONITOR.
[2019-11-05] MEDS: DOBUTamine 1000MCG/ML 250 ML IV SCH ×2 (07:48→12:12)
[2019-11-05] MEDS: fentaNYL Drip 2500mCg/250mlNS 250 ML IV SCH ×3 (08:05→22:00)
[2019-11-05] MEDS: DexMEDEtomidine 400 MCG in D5W 5% 96 ML IV SCH (08:33)
[2019-11-05] MEDS: NOREPINEPHRINE 8 MG/250ML KIT 250 ML IV SCH (08:41)
[2019-11-05] MEDS: PANTOPRAZOLE 40 MG/10 ML VIAL INJ IV SCH ×2 (09:36→22:00)
[2019-11-05] MEDS: ASPirin 81 mg TAB PO SCH (09:37)
[2019-11-05] MEDS: levoFLOXacin 750MG 150 ML IV SCH (09:37)
[2019-11-05] MEDS: ENOXAPARIN SOD 80 MG/0.8ML SYRINGE SC SCH ×2 (09:37→22:00)
[2019-11-05 10:12] LABS: Basophils # (auto) 0 10 ^3/uL (0-0.2); Basophils % (auto) 0.4 % (0.0-2.0); Eosinophils # (auto) 0 10 ^3/uL (0-0.8); Eosinophils % (auto) 0.1 % (0.0-7.0); Hematocrit 32.5 % (41.0-53.0); Hemoglobin 10.7 g/dL (13.5-17.5); Lymphocytes # (auto) 0.8 10 ^3/uL (0.4-5.4); Lymphocytes % (auto) 7.1 % (10.0-50.0); Mean Corpuscular Hemoglobin 31.6 pg (28.0-32.0); Mean Corpuscular Hgb Conc. 33.1 g/dL (32.0-36.0); Mean Corpuscular Volume 95.6 fL (80.0-100.0); Monocytes % (auto) 8.6 % (0.0-12.0); Neutrophils # (auto) 9.3 10 ^3/uL (1.6-8.6); Neutrophils % (auto) 83.8 % (37.0-80.0); Platelet Count (auto) 144 10^3/uL (140-450); White Blood Cell 11.1 10^3/uL (4.4-10.8)
--- NOTE | 2019-11-05 12:22 | NUR ---
Resumed care at 0715, orders reviewed and ongoing assessments being done. Being treated for multiple problems and remains intubated and sedated. Dr. Patten, mottler operator was in at 0706 and rounded. Discussed condition and plan of care. Reviewed medications and confirmed new orders. IVF's were discontinued and Dobutamine was increased to 4mcg/kg/min, set rate. Per Dr. Patten if HR >110 and sustains may decrease Dobutamine to previous dose of 2.5 mcg/kg/min. Contacted Dr. Patten at 0802 and made him aware that MAP <65 and SBP <90. Okay to initiate Levophed for BP support. Initiated at 0841. Dr. Reeves, dry talc racker in unit at 10 am and rounding. Made him aware of sedation status for possible CPAP trial. Versed was weaned off at 0943. FentaNLY and Precedex continue to infuse. Not following any commands, but is now trying to open eyes when rendering care. Strong cough and suctioning large amounts of purulent thick sputum via EET. Dr. Mota, Informatics Application Analyst rounded at 10 am, continue current plan of care. Rectal probe measuring temperature. Start of shift 99.5 and now has elevated to 100.4. Will continue with cooling measures as appropriate. Spoke with girlfriend Margi earlier via phone.
[2019-11-05] MEDS: ACETAMINOPHEN 650 mg PER 20 mL UD GT PRN (13:31)
--- NOTE | 2019-11-05 15:38 | NUR ---
assessment Patient is a 54 year old male who is on a vent in ICU. Per patients jeff Kiser prior to admission patient lived home with her and was independent. Patient has a cane for home use. Patients PCP is Dr Sam. Margi informed me that patient was vomiting and fell to the floor with chest pain and she rushed him to ER. I informed Margi that patients post discharge needs to be determined after extubation and prior to discharge. Margi verbalized understanding. Addendum: 11/05/19 at 1545 by Jennifer JONAS Amended: Links added.
--- NOTE | 2019-11-05 18:01 | NUR ---
Respiratory note: RECEIVED PT ON VENT V17, VENT CONNECTED TO RED OUTLET AND O2 SOURCE ALARMS ARE SET AND AUDIBLE. AMBU BAG AND MASK AT BEDSIDE. BS ARE COURSE SXD FOR LARGE AMOUNT OF THICK GREEN PLUGS. RN COMMUNICATED ON FINDINGS. HME ALSO CHANGED AT THI TIME DUE TO SATURATED WITH GREEN SECRETIONS. GAG REFLEX INTACT. PT COMFORTABLY SEDATED. RT NAME AND PAGER ASSIGNMENT WRITTEN ON PTS ROOM BOARD. WILL CONTINUE TO MONITOR Q2H. PTS CURRENT TEMP AT THIS TIME READING 98.6F.
--- NOTE | 2019-11-05 18:39 | NUR ---
Remains intubated and sedated. No CPAP trial today. Per Dr. Reeves, scheduled for a bronchoscopy tomorrow. Continues to have large thick purulent secretions from ETT. Versed restarted for comfort. Precedex completed and per Dr. Reeves may restart tomorrow if CPAP trial ordered. While off Versed did become more awake and opened eyes spontaneously but not able to follow simple direction or sustain eye contact. Have spoken with girlfriend Margi twice today to update on plan of care.
--- NOTE | 2019-11-05 19:30 | NUR ---
Assumed care. Patient opening eyes spontaneously but not tracking or following commands, attempting to sit up in bed and thrashing all extremities. Hyperactive cough noted with copious cmjtn-clzvq-tggf secretions noted from ETT, increasing sedation for patient comfort and vent synchrony. HR SR high 90s; dobutamine and levophed infusing per IV spreadsheet. Low grade rectal temp with cooling measures in place. Oral care and repositioning done.
--- NOTE | 2019-11-05 20:05 | NUR ---
Respiratory note: AT BEDSIDE FOR ROUTINE VENT CHECK. NO CHANGES DONE WILL CONTINUE TO MONITOR. BS ARE COURSE SXD FOR MODERATE THICK GREEN. CURRENT TEMP READS 98.4F. WILL CONTINUE TO MONITOR.
[2019-11-05] MEDS: PROPOFOL 100 ML IV SCH (20:30)
--- NOTE | 2019-11-05 20:55 | NUR ---
Patient vomited large amount of liquid green emesis, same fluid noted in ETT tubing as well. Immediately hooked up OGT to LCS. RT at bedside to change HME and tubing. Increased sedation during this time as patient coughing uncontrollably and saturations dropping.
--- NOTE | 2019-11-05 21:00 | NUR ---
Respiratory note: CALLED TO BEDSIDE BY RN, PT'S HME AND SUCTION BLEVINS FILLED WITH LARGE, THIN, GREEN SECRETIONS. VENT ALARMING HIGH PRESSURE AND LOW VT. HME AND SUCTION BLEVINS CHANGED, UNEVENTFUL. RN AT BEDSIDE.
--- NOTE | 2019-11-05 21:59 | NUR ---
Respiratory note: AT BEDSIDE FOR ROUTINE VENT CHECK. RN COMMUNICATED PT HAD VOMITED AND SOME CONTENT WAS BROUGHT UP INTO ETT. CXR ORDERED TO CONFIRM ETT PLACEMENT DUE TO CONCERN ABOUT TUBE AT 26CM AT THE LIP AND NOT 28CMS PREVIOUS CRX MENTIONED. BS ARE COURSE SXD FOR SCANT THIN GREEN. TUBING DRAINED AND HME CHANGED AGAIN AT THIS TIME. CURRENT TEMP READS 99.7F. WILL CONTINUE TO MONITOR.
[2019-11-05] MEDS: ATORVASTATIN 20 MG TAB PO SCH (22:00)
--- NOTE | 2019-11-05 22:12 | NUR ---
HR sustaining 120s; dobutamine decreased to 2.5 mcgs per MD order.
--- NOTE | 2019-11-05 22:25 | NUR ---
Patient extremely restless and fighting ventilator, unable to do sedation vacation at this time. Addendum: 11/05/19 at 2227 by Sheila Khan RN Amended: Links added.
[2019-11-06] VITALS (85 sets, daily range): BP systolic 95–123; BP diastolic 63–81
--- NOTE | 2019-11-06 00:22 | NUR ---
Respiratory note: AT BEDSIDE FOR ROUTINE VENT CHECK. BS ARE COURSE SXD FOR MODERATE THIN GREEN APPEARS LIKE STOMACH BILE. TUBING DRAINED AND HME CHANGED AGAIN AT THIS TIME. ETT ADVANCED TO 28CM AT THE LIP PER CXR TUBE WAS AT 7CM ABOVE THE SEVERO WHEN ETT WAS SECURED AT 26CM AT THE LIP. ETT CARLSON ALSO CHANGED DUE TO IT BEING VISIBLE SOILED AND ADHESIVE WORN OUT. CURRENT TEMP READS 100.6F. WILL CONTINUE TO MONITOR. ELENA VÁZQUEZ MADE AWARE OF CHANGES.
[2019-11-06] MEDS: ACETAMINOPHEN 650 mg PER 20 mL UD GT PRN (00:33)
[2019-11-06] MEDS: VANCOMYCIN 1GM/250ML 250 ML IV SCH ×4 (01:17→22:12)
--- NOTE | 2019-11-06 02:08 | NUR ---
Respiratory note: AT BEDSIDE FOR ROUTINE VENT CHECK. CURRENT TEMP READS 99.9F. SXD VIA ETT FOR SMALL THICK GREEN. WILL CONTINUE TO MONITOR. ELENA VÁZQUEZ MADE AWARE OF CHANGES.
--- NOTE | 2019-11-06 03:08 | NUR ---
Full bath and linen change done. Right IJ TLC dressing changed using sterile technique. Attempting to wean sedation as tolerated.
--- NOTE | 2019-11-06 04:07 | NUR ---
Attempted to decrease sedation over last hour, respirations have become irregular and in the low-mid 20s and patient appears to have hiccups and becoming restless. Increased sedation per orders for vent synchrony.
--- NOTE | 2019-11-06 04:22 | NUR ---
Respiratory note: END OF SHIFT VENT CHECK. CURRENT TEMP READS 99.5F. WILL HAVE DAY SHIFT CONTINUE POC.
[2019-11-06 05:23] LABS: Potassium 3.4 mmol/L (3.5-5.1)
[2019-11-06 05:35] LABS: Calcium 8.1 mg/dL (8.5-10.1)
[2019-11-06 05:40] LABS: Bilirubin, Total 1.1 mg/dL (0.2-1.0); Total Protein 5.7 g/dL (6.4-8.2)
[2019-11-06] MEDS ORDERED: LIDOCAINE 2%HCL (LOCAL ANESTH.) INJ 20ML MDV ONE (08:49)
[2019-11-06] MEDS ORDERED: LIDOCAINE HCL 2% TOP JELLY 5ML TOP ONE (08:49)
[2019-11-06] MEDS ORDERED: SODIUM CHLORIDE LOCK 0 ML ONE (08:50)
[2019-11-06] MEDS ORDERED: EPINEPHrine HCL 1 MG/1 ML AMP ONE (08:50)
[2019-11-06] MEDS ORDERED: GLYCOPYRROLATE 0.2 MG/ML 1ML VIAL ONE (08:50)
--- NOTE | 2019-11-06 09:00 | NUR ---
SEDATION VACATION HELD DUE TO BRONCHOSCOPY Addendum: 11/06/19 at 1508 by Jodee Abdul RN Amended: Links added.
[2019-11-06] MEDS ORDERED: ROCURONIUM 10MG/ML 10ML VIAL IV ONE (09:20)
--- NOTE | 2019-11-06 09:30 | NUR ---
PATIENT'S GIRLFRIEND JUNG PHONES WITH PASSWORD - UPDATE GIVEN - VERBALIZED UNDERSTANDING.
[2019-11-06] MEDS ORDERED: ACETYLCYSTEINE 10 %(100MG/ML) SOL 4ML ONE (09:45)
[2019-11-06] MEDS: ASPirin 81 mg TAB PO SCH (10:00)
--- NOTE | 2019-11-06 10:00 | NUR ---
BRONCHOSCOPY AT BEDSIDE PER DR CHIN - PATIENT TOLERATED WELL - COPIOUS AMOUNTS OF SECRETIONS AND MUCUS PLUGS REMOVED.
[2019-11-06] MEDS: MIDAZOLAM DRIP 50 mg/50mL 50 ML IV SCH ×3 (10:20→22:20)
[2019-11-06] MEDS: PANTOPRAZOLE 40 MG/10 ML VIAL INJ IV SCH ×2 (10:25→21:47)
[2019-11-06] MEDS: ENOXAPARIN SOD 80 MG/0.8ML SYRINGE SC SCH ×2 (10:26→21:46)
[2019-11-06] MEDS: NOREPINEPHRINE 8 MG/250ML KIT 250 ML IV SCH (10:47)
[2019-11-06] MEDS: fentaNYL Drip 2500mCg/250mlNS 250 ML IV SCH ×2 (10:53→23:26)
[2019-11-06] MEDS: DexMEDEtomidine 400 MCG in D5W 5% 96 ML IV SCH (11:26)
--- NOTE | 2019-11-06 12:00 | NUR ---
DR SYED VISITS AND EXAMINES PATIENT - ORDERS RECEIVED.
[2019-11-06] MEDS: DOBUTamine 1000MCG/ML 250 ML IV SCH (12:16)
--- NOTE | 2019-11-06 12:25 | NUR ---
Nutrition Followup Wt: 76.3 kg Pt currently intubated, sedated currently NPO with no new diet order per RNs Est Energy needs: 4276-3150 kcals (25-30 kcal/kgBW), Est Protein needs: 60-75 gms/day (0.8-1.0 gm/kgBW). Will continue to monitor and reassess prn. Labs: CB 1.1 H, ALB 2.0 L, CA 8.1 L. BM: Pt with no BM noted per RN doc Skin: BS 13 mod risk, full wound care details in RN doc PES: 1) ) Increased nutrient needs aeb pt sedated, intubated, NPO r/t pt with no PO intake 2) Altered nutrition related lab values aeb hyperglycemia, hypocalcemia, elev LFTs, mod hypoalbuminemia r/t current medical condition Comments Will continue to closely monitor pertinent labs, NPO status, and skin status prn. Will followup in 2-3 days 1) Continue to closely monitor pt NPO status. 2) If pt remains NPO for the next 48 hrs, suggest Jevity 1.2 @ 70ml/hr goal rate as tolerated. 3) Gradually advance pt to oral diet when medically feasible and as tolerated 4) continue current plan of care
[2019-11-06] MEDS: levoFLOXacin 750MG 150 ML IV SCH (12:52)
--- NOTE | 2019-11-06 13:45 | NUR ---
DR GALEANO VISITS AND EXAMINES PATIENT - NO NEW ORDERS RECEIVED.
[2019-11-06 13:51] LABS: Basophils # (auto) 0 10 ^3/uL (0-0.2); Basophils % (auto) 0.3 % (0.0-2.0); Eosinophils # (auto) 0.1 10 ^3/uL (0-0.8); Eosinophils % (auto) 0.4 % (0.0-7.0); Hematocrit 34.4 % (41.0-53.0); Hemoglobin 11.4 g/dL (13.5-17.5); Lymphocytes % (auto) 7.8 % (10.0-50.0); Mean Corpuscular Hemoglobin 31.1 pg (28.0-32.0); Mean Corpuscular Volume 94.2 fL (80.0-100.0); Monocytes # (auto) 1.6 10 ^3/uL (0-1.3); Monocytes % (auto) 12.8 % (0.0-12.0); Neutrophils # (auto) 9.8 10 ^3/uL (1.6-8.6); Neutrophils % (auto) 78.7 % (37.0-80.0); Platelet Count (auto) 199 10^3/uL (140-450); Red Blood Cells 3.65 10^6/uL (4.5-5.90); Red Cell Distribution Width 13.4 % (11.8-14.3); White Blood Cell 12.4 10^3/uL (4.4-10.8)
--- NOTE | 2019-11-06 14:00 | NUR ---
Patient febrile - cooling measures applied and Tylenol Supp given.
[2019-11-06] MEDS: ACETAMINOPHEN 650 MG RECT SUPP PR PRN ×2 (14:33→21:13)
--- NOTE | 2019-11-06 16:00 | NUR ---
Patient suctioned per ETT of copious amt's thick creamy yellow secretions with some bile noted occasionally.
--- NOTE | 2019-11-06 19:30 | NUR ---
OPEN NOTES Assumed care of patient. Patient received sedated with IV Versed and Fentanyl. Pupils both sluggishly reactive to light. cough and gag noted. No limb movement seen. Febrile - cooling measures done Intubated and ventilated on AC mode, FiO2 40%. Moderate amount of ETT secretions suctioned. Oral care done. Sinus rhythm to sinus tachycardia, BP supported with IV Levophed and Dobutamine. OGT to LCS with greenish output Gibson catheter draining to yellowish clear output. Full assessment done - refer interventions.
[2019-11-06] MEDS: PROPOFOL 100 ML IV SCH (20:30)
[2019-11-06] MEDS ORDERED: TPN PER PHARMACY 0 ML IV SCH (20:45)
--- NOTE | 2019-11-06 21:10 | NUR ---
TEMP 100.6F COOLING MEASURES DONE WILL GIVE TYLENOL
[2019-11-06] MEDS ORDERED: POTASSIUM CHL 20MEQ/100ML 100 ML IV ONE (21:15)
--- NOTE | 2019-11-06 21:45 | NUR ---
TALKED TO PATIENT'S GF JOHN CORRECT PASSWORD GIVEN UPDATED HER OF PATIENT'S CONDITION AND POC. ALL QUESTIONS ANSWERED. VERBALIZED UNDERSTANDING
[2019-11-06] MEDS: ATORVASTATIN 20 MG TAB PO SCH (21:51)
[2019-11-06] MEDS ORDERED: CLINIMIX PER PHARMACY IV NR (22:00)
[2019-11-06] MEDS: ACCU-CHEK COMFORT CURVE STRIP VI SCH (23:47)
[2019-11-06] MEDS: InsuLIN REG 1unit/0.01ml Soln (100units/ml) SC SCH (23:48)
[2019-11-07] VITALS (95 sets, daily range): BP systolic 99–136; BP diastolic 41–96
[2019-11-07] MEDS ORDERED: DEXTROSE (50%) 50ML SYRG IV SCH
[2019-11-07] MEDS: DOBUTamine 1000MCG/ML 250 ML IV SCH ×2 (01:54→17:02)
[2019-11-07] MEDS: MIDAZOLAM DRIP 50 mg/50mL 50 ML IV SCH ×2 (02:37→23:00)
--- NOTE | 2019-11-07 03:40 | NUR ---
Patient bathe/linen change Patient given a sponge bath. Skin integrity assessed for any changes. Linens changed. Patient repositioned for comfort.
[2019-11-07 04:11] LABS: Basophils # (auto) 0.1 10 ^3/uL (0-0.2); Basophils % (auto) 0.5 % (0.0-2.0); Eosinophils # (auto) 0.1 10 ^3/uL (0-0.8); Eosinophils % (auto) 0.7 % (0.0-7.0); Hemoglobin 11.2 g/dL (13.5-17.5); Lymphocytes # (auto) 0.8 10 ^3/uL (0.4-5.4); Lymphocytes % (auto) 5.7 % (10.0-50.0); Mean Corpuscular Hemoglobin 31.8 pg (28.0-32.0); Mean Corpuscular Hgb Conc. 33.9 g/dL (32.0-36.0); Mean Corpuscular Volume 93.9 fL (80.0-100.0); Monocytes # (auto) 1.5 10 ^3/uL (0-1.3); Monocytes % (auto) 10.8 % (0.0-12.0); Neutrophils # (auto) 11.3 10 ^3/uL (1.6-8.6); Neutrophils % (auto) 82.3 % (37.0-80.0); Platelet Count (auto) 200 10^3/uL (140-450); Red Blood Cells 3.52 10^6/uL (4.5-5.90); Red Cell Distribution Width 13.1 % (11.8-14.3); White Blood Cell 13.8 10^3/uL (4.4-10.8)
[2019-11-07 04:37] LABS: INR 1.05 (0.9-1.15); Partial Thromboplastin Time 37.3 sec (23.64-32.05)
[2019-11-07] MEDS: VANCOMYCIN 1GM/250ML 250 ML IV SCH ×4 (04:58→22:23)
[2019-11-07 05:02] LABS: Albumin 1.9 g/dL (3.4-5.0); Magnesium 2.3 mg/dL (1.6-2.6); Potassium 3.4 mmol/L (3.5-5.1)
[2019-11-07 05:05] LABS: Bilirubin, Total 0.8 mg/dL (0.2-1.0); Phosphorus 3.1 mg/dL (2.5-4.90); Total Protein 5.9 g/dL (6.4-8.2)
[2019-11-07] MEDS: ACCU-CHEK COMFORT CURVE STRIP VI SCH ×3 (05:52→18:27)
[2019-11-07] MEDS: InsuLIN REG 1unit/0.01ml Soln (100units/ml) SC SCH ×3 (06:00→18:00)
--- NOTE | 2019-11-07 07:20 | NUR ---
REPORT REPORT GIVEN TO ELENA DOUGLAS
[2019-11-07] MEDS: NOREPINEPHRINE 8 MG/250ML KIT 250 ML IV SCH (08:15)
--- NOTE | 2019-11-07 09:00 | NUR ---
Family updated on pt status Family of EMILIANO LEÓN phoned here and was updated on patient's status and condition. All questions and concerns addressed. verbalized understanding.
[2019-11-07] MEDS: ENOXAPARIN SOD 80 MG/0.8ML SYRINGE SC SCH ×2 (10:43→22:30)
[2019-11-07] MEDS: ASPirin 81 mg TAB PO SCH (10:43)
[2019-11-07] MEDS: PANTOPRAZOLE 40 MG/10 ML VIAL INJ IV SCH ×2 (10:43→22:30)
[2019-11-07] MEDS: DexMEDEtomidine 400 MCG in D5W 5% 96 ML IV SCH (11:26)
--- NOTE | 2019-11-07 12:30 | NUR ---
Provider/Hospitalist at bedside Dr. Kruse made rounds and saw pt. and made some orders.
[2019-11-07] MEDS: levoFLOXacin 750MG 150 ML IV SCH (12:44)
--- NOTE | 2019-11-07 13:00 | NUR ---
TEMPERATURE ice packs provided as cooling measures, pt.'s temp noted to have gone up, will monitor pt.
[2019-11-07] MEDS: fentaNYL Drip 2500mCg/250mlNS 250 ML IV SCH (13:39)
--- NOTE | 2019-11-07 16:30 | NUR ---
Family updated on pt status Family of MAUEMILIANO updated on patient's status and condition. All questions and concerns addressed. verbalized understanding.
[2019-11-07] MEDS ORDERED: TPN PER PHARMACY IV NR ×7 (20:00)
--- NOTE | 2019-11-07 20:00 | NUR ---
OPEN ASSUMED CARE OF MALE PT ORALLY INTUBATED. PT SEDATED ON FENTANYL GTT 175 MCG/HR, AND VERSED GTT 10 MG/HR. PT WITHDRAWS TO TACTILE STIMULI. OTHERWISE NON RESPONSIVE. PT SINUS TACH ON ADDICTION SPECIALIST. DOBUTAMINE GTT INFUSING AT 2.5 MCG/KG/MIN. TPN INFUSING AT 54 ML/HR. OGT IN PLACE TO LIS DRAINING GREEN BILE. PLACEMENT VERIFIED. R. IJ TLC IN PLACE ALL PORTS PATENT. DRESSING CDI. FERNÁNDEZ TO GRAVITY DRAINING CLEAR YELLOW URINE. CB SCD'S IN PLACE. BED IN LOWEST LOCKED POSITION. SIDE RAILS UP X 2. HOB ELEVATED 40 DEGREES. NO INDICATION OF PAIN OBSERVED. NO SKIN BREAKDOWN OBSERVED. PILLOWS USED TO OFFLOAD BONY PROMINENCES AND CB HEELS. PT IN FULL VIEW OF RN STATION. WILL CONTINUE TO MONITOR.
[2019-11-07] MEDS: PROPOFOL 100 ML IV SCH (20:30)
[2019-11-07] MEDS: POTASSIUM CHL 20MEQ/100ML 100 ML IV SCH ×2 (20:31→21:54)
--- NOTE | 2019-11-07 21:00 | NUR ---
FAMILY CALL PT SISTER CALLED UNIT FOR UPDATE ON PT CONDITION. AFTER PASSWORD FOR PHONE GIVEN. UPDATE PROVIDED. ALL QUESTIONS AND CONCERNS ADDRESSED.
--- NOTE | 2019-11-07 21:00 | NUR ---
TEMP PT WITH RECTAL TEMP 100.2. ICE BAGS PLACED TO CB AXILLA AND GROIN. FAN IN PLACE. WILL CONTINUE TO MONITOR.
--- NOTE | 2019-11-07 21:30 | NUR ---
PT GIRLFRIEND CALLED UNIT PT GIRLFRIEND RAFFAELE CALLED UNIT FOR UPDATE ON PT CONDITION. AFTER PASSWORD FOR PHONE GIVEN. UPDATE PROVIDED. ALL QUESTIONS AND CONCERNS ADDRESSED.
--- NOTE | 2019-11-07 22:00 | NUR ---
ADMITTED WITH CHEST PAIN. CODE BLUE IN ER. INTUBATED. DIAGNOSIS STEMI. 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 REMOVED CLOTS. NO STENTS. ECHOCARDIOGRAM EF <20%. ON DOBUTAMINE 2.5 MCG/KG/MIN. LEVOPHED WEANED OFF TODAY. SEDATION: FENTANYL AND VERSED. OVERBREATHING THE VENTILATOR. NO SECRETIONS SUCTIONED FROM THE ETT. SMALL AMOUNT OF GREEN SUCTIONED FROM THE ORAL CAVITY. THE PATIENTS BASIC RHYTHM HAS BEEN SINUS TACHYCARDIA 105. NOW, HE IS ST WITH MAUREEN AFIB THAT SELF CORRECTS BACK TO SINUS TACHYCARDIA. OGT TO LIS. GREEN SECRETIONS IN OGT. ABDOMEN SOFT. PULSES PALPABLE. BILATERAL MITTENS ON. RIGHT EAR IS RED. FERNÁNDEZ DRAINING A LARGE AMOUNT OF YELLOW LIQUID TO DOWN DRAIN BAG. KCL REPLACEMENT GOING. LOW GRADE TEMPERATURE . ICE BAGS TO AXILLA AND GROIN.
--- NOTE | 2019-11-07 22:15 | NUR ---
REPORT REPORT GIVEN TO RAVI BARON RN.
[2019-11-07] MEDS: ATORVASTATIN 20 MG TAB PO SCH (22:30)
--- NOTE | 2019-11-07 23:30 | NUR ---
STAYED IN AFIB RVR RATE [id number]. DR MCNEAL CALLED.
--- NOTE | 2019-11-07 23:50 | NUR ---
CALL PLACED TO DR MCNEAL. AFIB RVR RATE [id number]. ORDER RECEIVED FOR DIGOXIN LOAD. IF IT CONTINUES TO USE CARDIZEM.
[2019-11-08] VITALS (85 sets, daily range): BP systolic 102–131; BP diastolic 61–85
--- NOTE | 2019-11-08 | NUR ---
DIGOXIN GIVEN. HR SLOWED INITIALLY AND THEN SPED UP. MAGNESIUM RIDER GOING. LABS SENT. TEMPERATURE COMING DOWN WITH ICE BAGS AND FAN. LUNGS COARSE. NOTHING SUCTIONED FROM THE ETT. ORAL CARE DONE. ONCE AGAIN OBTAINED A SCANT AMOUNT OF GREEN FROM THE ORAL CAVITY. NEW ICE BAGS PLACED. OGT TO LIS STILL DRAINING A GREEN LOWER BRULE COLOR LIQUID. NO BOWEL SOUNDS. FERNÁNDEZ DRAINING GOOD AMOUNTS OF URINE. DR MCNEAL REQUESTED THAT THE DOBUTAMINE DRIP BE WEANED DOWN. IT WAS AT 2.5 AND NOW IT IS AT 2MCG/KG /MIN.
[2019-11-08 00:37] LABS: Magnesium 2.3 mg/dL (1.6-2.6); Potassium 3.9 mmol/L (3.5-5.1)
[2019-11-08] MEDS: MAGNESIUM SULFATE 1GM/100ML 100 ML IV SCH ×2 (01:00)
[2019-11-08] MEDS ORDERED: DIGOXIN (250MCG/ML) 2 ML AMPULE IV ONE ×3 (01:00)
--- NOTE | 2019-11-08 01:15 | NUR ---
SECOND DOSE OF 500MCG IV OF DIGOXIN GIVEN. SAW THE SAME RESULTS. HR INITIALLY SLOWED TO NSR IN THE 80S AND THEN IT SPED BACK UP TO A ST OF 114.
[2019-11-08] MEDS: fentaNYL Drip 2500mCg/250mlNS 250 ML IV SCH ×2 (02:00→16:10)
[2019-11-08] MEDS: DOBUTamine 1000MCG/ML 250 ML IV SCH (02:00)
--- NOTE | 2019-11-08 03:00 | NUR ---
AM LABS SENT.
--- NOTE | 2019-11-08 03:30 | NUR ---
[facility] B[facility]
[2019-11-08] MEDS: VANCOMYCIN 1GM/250ML 250 ML IV SCH ×3 (04:00→16:09)
[2019-11-08 04:43] LABS: Potassium 3.7 mmol/L (3.5-5.1)
[2019-11-08 04:44] LABS: Basophils # (auto) 0 10 ^3/uL (0-0.2); Basophils % (auto) 0.2 % (0.0-2.0); Eosinophils # (auto) 0.1 10 ^3/uL (0-0.8); Eosinophils % (auto) 0.8 % (0.0-7.0); Hematocrit 32.4 % (41.0-53.0); Lymphocytes # (auto) 0.8 10 ^3/uL (0.4-5.4); Lymphocytes % (auto) 6.4 % (10.0-50.0); Mean Corpuscular Hemoglobin 32.1 pg (28.0-32.0); Mean Corpuscular Hgb Conc. 33.9 g/dL (32.0-36.0); Mean Corpuscular Volume 94.5 fL (80.0-100.0); Monocytes # (auto) 1.8 10 ^3/uL (0-1.3); Monocytes % (auto) 14.1 % (0.0-12.0); Neutrophils # (auto) 10.2 10 ^3/uL (1.6-8.6); Neutrophils % (auto) 78.5 % (37.0-80.0); Platelet Count (auto) 216 10^3/uL (140-450); Red Blood Cells 3.43 10^6/uL (4.5-5.90); Red Cell Distribution Width 13.3 % (11.8-14.3)
[2019-11-08 04:49] LABS: Albumin 1.8 g/dL (3.4-5.0); BUN/Creatinine Ratio 22.2; Magnesium 2.7 mg/dL (1.6-2.6)
[2019-11-08 04:51] LABS: Bilirubin, Total 0.5 mg/dL (0.2-1.0); Phosphorus 2.6 mg/dL (2.5-4.90); Total Protein 5.7 g/dL (6.4-8.2)
[2019-11-08] MEDS: InsuLIN REG 1unit/0.01ml Soln (100units/ml) SC SCH ×4 (06:00→18:00)
[2019-11-08] MEDS: ACCU-CHEK COMFORT CURVE STRIP VI SCH ×4 (06:00→18:55)
--- NOTE | 2019-11-08 06:00 | NUR ---
SINUS TACHY/NSR RHYTHM VACILLATES.
--- NOTE | 2019-11-08 06:57 | NUR ---
CENTRAL LINE DRESSING CHANGE
[2019-11-08] MEDS ORDERED: dilTIAZem 125mg/125ml BAG KIT 100 ML IV SCH (07:34)
[2019-11-08] MEDS ORDERED: dilTIAZem 25 MG/5 ML VIAL IV ONE (07:45)
[2019-11-08] MEDS: NOREPINEPHRINE 8 MG/250ML KIT 250 ML IV SCH (08:15)
--- NOTE | 2019-11-08 09:00 | NUR ---
SEDATION VACATION HELD AT THIS TIME DUE TO AGITATION Addendum: 11/08/19 at 1202 by Vinay Martin RN Amended: Links added.
[2019-11-08] MEDS: ASPirin 81 mg TAB PO SCH (09:31)
[2019-11-08] MEDS: PANTOPRAZOLE 40 MG/10 ML VIAL INJ IV SCH (09:31)
[2019-11-08] MEDS: MIDAZOLAM DRIP 50 mg/50mL 50 ML IV SCH ×3 (09:32→18:54)
[2019-11-08] MEDS: ENOXAPARIN SOD 80 MG/0.8ML SYRINGE SC SCH (09:32)
--- NOTE | 2019-11-08 09:45 | NUR ---
[facility] [employer] UPDATED ON PATIENT STATUS, VITALS, AND LABS
[2019-11-08] MEDS: levoFLOXacin 750MG 150 ML IV SCH (10:52)
--- NOTE | 2019-11-08 10:59 | NUR ---
DR. MARQUES SPOKE WITH PAULINA AT EXCHANGE TO NOTIFY MD THAT PATIENT IS BEING TRANSFERRED TO [facility] WHEN BED IS AVAILABLE
[2019-11-08] MEDS: DexMEDEtomidine 400 MCG in D5W 5% 96 ML IV SCH (11:26)
--- NOTE | 2019-11-08 11:42 | NUR ---
Nutrition Followup Wt: 79.7 kg Pt currently intubated, sedated currently NPO with TPN nutrition suport @ 54 ml/hr, providing 1360 kcals, 60g Protein and 1120 NPCs. Pt with inadequate energy intake from PN support aeb 60% to 73% of est caloric needs. Protein intake from PN support is adequate aeb 80% to 100% protein needs. Pt with no noted distress per RN doc. Will continue to monitor PO status, skin status, pertinent labs and weight trends. Will f/u in 2-3 days. Est Energy needs: 9068-3149 kcals (25-30 kcal/kgBW), Est Protein needs: 60-75 gms/day (0.8-1.0 gm/kgBW). Will continue to monitor and reassess prn. Labs: GLUC 124 H, ALB 1.8 L, CA 8.0 L. BM: Pt with no BM noted per RN doc Skin: BS 11 high risk, full wound care details in RN doc PES: 1) ) Increased nutrient needs aeb pt sedated, intubated, NPO r/t pt with no PO intake 2) Altered nutrition related lab values aeb hyperglycemia, hypocalcemia, elev LFTs, mod hypoalbuminemia r/t current medical condition Comments Will continue to closely monitor pertinent labs, NPO status, and skin status prn. Will followup in 2-3 days 1) Continue to closely monitor pt NPO status. 2) If pt remains NPO for the next 48 hrs, suggest Jevity 1.2 @ 70ml/hr goal rate as tolerated. 3) Gradually advance pt to oral diet when medically feasible and as tolerated 4) continue current plan of care
--- NOTE | 2019-11-08 14:00 | NUR ---
TRANSFER AIDAN [facility] SISTER NOTIFIED OF TRANSFER TO [facility]. VERIFIED WITH SECOND RN AFSHIN Glover RN WITH FAMILY AGREEMENT.
--- NOTE | 2019-11-08 15:14 | NUR ---
CVP INCORRECT FROM [id number] Signed: 11/08/19 at 1514 by LEO CARABALLO <Co-Signature Required> Co-Signed: 11/08/19 at 1514 by Vinay Martin RN
[2019-11-08] MEDS: ACETAMINOPHEN 650 MG RECT SUPP PR PRN (16:57)
--- NOTE | 2019-11-08 18:00 | NUR ---
[facility] [phone] X [phone] PATIENT TO ICU 18
--- NOTE | 2019-11-08 18:30 | NUR ---
UPON INITIAL ASSESSMENT ET TUBE NOTED AT 25CM AT THE LOWER LIP, COARSE/ DIMINISHED BILATERAL BS NOTED, SMALL SECRETIONS NOTED DURING SUCTION. CHEST XRAY REVIEWED, ET TUBE NOTED AT 6CM ABOVE SEVERO. ET TUBE ADVANCED TO 27 CM AT THE LOWER LIP, BILATERAL COARSE/CLEAR BS HEARD THROUGHOUT LUNG ALBERTS. SUCTIONED LARGE THICK BLOODY/JENKINS SECRETIONS. PT SPO2 IMPROVED TO 99%. WILL NOTIFY RN AND CONTINUE TO MONITOR PT.
--- NOTE | 2019-11-08 18:33 | NUR ---
CANDELARIA MANUEL FROM [facility] ON THE PHONE. ALL QUESTIONS AND CONCERNS ADDRESSED. ETA 191
--- NOTE | 2019-11-08 18:49 | NUR ---
REPORT GIVEN TO ARNALDO FROM [facility] ALL QUESTIONS AND CONCERNS ADDRESSED. INFORMED ARNALDO ON [facility]'S ETA OF 1914.
--- NOTE | 2019-11-08 19:19 | NUR ---
REPORT FROM ELENA RAMIREZ. UPDATED ON STATUS. [facility] DUE HERE RIGHT NOW. VSS. ETT TO VENTILATOR. FERNÁNDEZ IN PLACE. OGT TO LIS. SEDATION: FENTANYL AND VERSED. NUTRITION: TPN 54CC/HR. RIJ TLC.
--- NOTE | 2019-11-08 19:22 | NUR ---
[facility] HERE. REPORT GIVEN.
[2019-11-08 19:34] LABS: Pre Albumin 31.6 mg/dL (20.0-40.0)
[2019-11-08] MEDS ORDERED: TPN PER PHARMACY IV NR ×9 (20:00)
--- NOTE | 2019-11-08 20:08 | NUR ---
PATIENT LEFT THE PREMISES AT 1954 WITH [facility] PERSONNEL, ON A GURNEY , ON A MONITOR. VSS. PRADEEP GLASS.
--- NOTE | 2019-11-10 09:15 | NUR ---
Weekend information scientist-I received a page from Nurse Lexa 11/08/19 2206 letting me know that patient is to transfer to [facility]. I called [facility] Investigative Writer Marisela Corea-she already gave auth for [facility] to Lexa, I asked her to contact the nurse's station when a bed becomes available.
== END 2019-11-08 20:00 | disposition short-term general hospital (02) | DRG 250 ==
LOC: ER 18:21 → CATH 1 19:56 → ICU WEST 19:57
PROVIDERS: ADMIT Internal Medicine; ATTEND Internal Medicine
PROC: 02713ZZ Dilation of Coronary Artery, Two Arteries, Percutaneous Approach (ICD-10-PCS; principal; 2019-11-01)
PROC: 02C13ZZ Extirpation of Matter from Coronary Artery, Two Arteries, Percutaneous Approach (ICD-10-PCS; 2019-11-01)
PROC: 5A1955Z Respiratory Ventilation, Greater than 96 Consecutive Hours (ICD-10-PCS; 2019-11-01)
PROC: 3E073PZ Introduction of Platelet Inhibitor into Coronary Artery, Percutaneous Approach (ICD-10-PCS; 2019-11-01)
PROC: 4A023N7 Measurement of Cardiac Sampling and Pressure, Left Heart, Percutaneous Approach (ICD-10-PCS; 2019-11-01)
PROC: B2111ZZ Fluoroscopy of Multiple Coronary Arteries using Low Osmolar Contrast (ICD-10-PCS; 2019-11-01)
PROC: B2151ZZ Fluoroscopy of Left Heart using Low Osmolar Contrast (ICD-10-PCS; 2019-11-01)
PROC: 0BH17EZ Insertion of Endotracheal Airway into Trachea, Via Natural or Artificial Opening (ICD-10-PCS; 2019-11-01)
PROC: 5A12012 Performance of Cardiac Output, Single, Manual (ICD-10-PCS; 2019-11-01)
PROC: B41F1ZZ Fluoroscopy of Right Lower Extremity Arteries using Low Osmolar Contrast (ICD-10-PCS; 2019-11-01)
PROC: 5A2204Z Restoration of Cardiac Rhythm, Single (ICD-10-PCS; 2019-11-01)
PROC: 02HV33Z Insertion of Infusion Device into Superior Vena Cava, Percutaneous Approach (ICD-10-PCS; 2019-11-03)
PROC: 0B9D8ZX Drainage of Right Middle Lung Lobe, Via Natural or Artificial Opening Endoscopic, Diagnostic (ICD-10-PCS; 2019-11-06)
PROC: 0B918ZZ Drainage of Trachea, Via Natural or Artificial Opening Endoscopic (ICD-10-PCS; 2019-11-06)
DX: I21.02 ST elevation (STEMI) myocardial infarction involving left anterior descending coronary artery (principal); J96.01 Acute respiratory failure with hypoxia; K72.00 Acute and subacute hepatic failure without coma; I49.01 Ventricular fibrillation; J69.0 Pneumonitis due to inhalation of food and vomit; I46.9 Cardiac arrest, cause unspecified; I50.43 Acute on chronic combined systolic (congestive) and diastolic (congestive) heart failure; N17.9 Acute kidney failure, unspecified; J98.11 Atelectasis; I47.2 Ventricular tachycardia; I42.9 Cardiomyopathy, unspecified; I48.92 Unspecified atrial flutter; I11.0 Hypertensive heart disease with heart failure; D72.829 Elevated white blood cell count, unspecified; M06.9 Rheumatoid arthritis, unspecified; E87.5 Hyperkalemia; D64.9 Anemia, unspecified; E87.6 Hypokalemia; I25.5 Ischemic cardiomyopathy; F17.210 Nicotine dependence, cigarettes, uncomplicated; F12.90 Cannabis use, unspecified, uncomplicated; Z90.49 Acquired absence of other specified parts of digestive tract
CPT/HCPCS: 31500; 31624; 31645; 36415; 36600; 71045; 75710; 76705; 80053; 80202; 81001; 82040; 82570; 82805; 82962; 83735; 83880; 84100; 84132; 84300; 84478; 84484; 85025; 85610; 85730; 87040; 87070; 87081; 87086; 87205; 92924; 92950; 93005; 93306; 93458; 93970; 94002; 94003; 94640; 96374; 99152; 99291; C1751; C1887; C9113; G0378; J0171; J0330; J1815; J1956; J2250; J2704; J3480; J7060; J7131; Q9956; Q9967

== ENCOUNTER 2019-12-13 21:01 | Emergency (ER) | payer OTHER ==
[~2019-12-13] VITALS: Ht 182.9 cm; Wt 68.0 kg
[2019-12-13 21:12] VITALS: BP 104/67
== END 2019-12-13 23:40 | disposition left against medical advice (07) ==
LOC: EDBD 21:01 → ER 21:06
DX: R53.1 Weakness (principal); Z53.21 Procedure and treatment not carried out due to patient leaving prior to being seen by health care provider
CPT/HCPCS: 93005